=== PATIENT | female | born 1990 | race Caucasian/White ===

== ENCOUNTER → 2023-03-29 | Emergency (ER) | payer BC ==
[~2023-03-29] MED LIST: CYCLOBENZAPRINE 10 MG TAB ONE; KETOROLAC 30 MG/ML INJ ONE; dexAMETHasone 10 MG/ML VIAL ONE
[2023-03-29 09:06] LABS: Specific Gravity 1.005 (1.005-1.030)
--- NOTE | 2023-03-29 09:26 | RAD REPORT ---
EXAM DESCRIPTION: CT - Spine Lumbar Wo Con - 03/29/2023 9:14 am CLINICAL HISTORY: Radiculopathy. LOWER BACK PAIN COMPARISON: No comparisons TECHNIQUE: Axial noncontrast CT imaging of the lumbar spine was performed with coronal and sagittal re-formatted images. All CT scans are performed using dose optimization technique as appropriate and may include automated exposure control or mA/KV adjustment according to patient size. FINDINGS: No acute lumbar spine fracture seen. No aggressive marrow pattern or malalignment. Paraspinal tissues are normal in thickness. No paraspinal abscess or hematoma seen. Mild posterior disc bulges are present lower lumbar levels. No gross high-grade canal stenosis. IMPRESSION: No acute lumbar spine abnormality is discerned. Mild lower lumbar spondylosis.
[2023-03-29 09:30] LABS: Specific Gravity 1.005 (1.005-1.030); Urine Bacteria <20 /HPF (<20); Urine Bilirubin NEGATIVE (Negative); Urine Blood Negative (Negative); Urine Clarity Turbid (Clear); Urine Color Colorless (Yellow); Urine Glucose NEGATIVE (Negative); Urine Mucus Slight /HPF (None Seen); Urine Protein NEGATIVE (Negative); Urine RBC None Seen /HPF (None Seen); Urine Urobilinogen Normal (Normal)
--- NOTE | 2023-03-29 09:36 | EDPHYS ---
Physician Documentation [facility] Name: Nevaeh Hightower Age: 32 yrs Sex: Female : 1990 Arrival Date: 03/29/2023 Time: 08:03 Bed IW1 Private MD: ED Physician Mauricio Adame HPI: 03/29 08:19 This 32 yrs old Female presents to ER via Unassigned with complaints of Low Back Pain. sb4 08:19 The patient presents with pain that is acute, with no known mechanism of injury. The sb4 symptoms are located in the left low back. The pain radiates to the left leg. The problem was sustained without known cause. Onset: The symptoms/episode began/occurred 1 year(s) ago, and became worse 4 day(s) ago. Modifying factors: The patient symptoms are alleviated by rest, the patient symptoms are aggravated by any movement. Associated signs and symptoms: Pertinent negatives: dysuria, fever, hematuria, incontinence, nausea, tingling, weakness. The patient has not experienced similar symptoms in the past. Patient reports left-sided sciatica x 1 year however got worse a few days ago. She states that she has been taking Tylenol Motrin without relief. Denies any specific injury. Denies any urinary symptoms. Denies any bowel or bladder incontinence . ROS: 08:19 Constitutional: Negative for fever, chills, and weight loss, sb4 08:19 Back: Positive for pain at rest, radiated pain, 08:19 All other systems are negative, Exam: 08:19 Constitutional: This is a well developed, well nourished patient who is awake, alert, sb4 and in no acute distress. Head/Face: Normocephalic, atraumatic. Eyes: Extra-ocular motions intact. Periorbital areas with no swelling, redness, or edema. ENT: Mucous membranes moist. Skin: Warm, dry with normal turgor. Normal color with no rashes, no lesions, and no evidence of cellulitis. MS/ Extremity: Pulses equal, no cyanosis. Neurovascular intact. Full, normal range of motion. Neuro: Awake and alert, GCS 15, oriented to person, place, time, and situation. Motor strength 5/5 in all extremities. Sensory grossly intact. 08:19 Back: ROM is painful, normal spinal alignment noted, CVA tenderness, is absent, muscle spasm, is not present, Straight leg raises: of both lower extremities does not illicit pain, Vital Signs: 08:59 BP 150 / 101; Pulse 110; Resp 16; Temp 97.9; Pulse Ox 97% on R/A; Pain 7/10; iw 08:59 Pain Scale: Adult iw MDM: 08:06 Patient medically screened. sb4 08:19 Differential diagnosis: strain, fracture, sciatica, Herniated disc UTI. sb4 09:35 Data reviewed: vital signs, nurses notes, lab test result(s), radiologic studies, and sb4 as a result, I will discharge patient. Counseling: I had a detailed discussion with the patient and/or guardian regarding the historical points, exam findings, and any diagnostic results supporting the discharge/admit diagnosis, lab results, radiology results, to return to the emergency department if symptoms worsen or persist or if there are any questions or concerns that arise at home. 03/29 08:19 Order name: Test, Urine; Complete Time: 09:08 sb4 03/29 08:19 Order name: UAM; Complete Time: 09:35 sb4 03/29 08:19 Order name: CT Lumbar Spine Wo Con; Complete Time: 09:27 sb4 Administered Medications: 08:58 Drug: Ketorolac IM 30 mg IM once Route: IM; Site: left gluteus; iw 08:58 Drug: Dexamethasone IM 10 mg IM once Route: IM; Site: left gluteus; iw 08:58 Drug: Cyclobenzaprine PO 10 mg PO once Route: PO; iw Disposition: 18:39 I was immediately available on-site in the Emergency Department for consultation in the ms3 care of the patient. Disposition Summary: 03/29/23 09:36 Discharge Ordered Notes: Location: Home sb4 Problem: an ongoing problem sb4 Symptoms: have improved sb4 Condition: Stable sb4 Diagnosis - Lumbago with sciatica, left side sb4 Followup: sb4 - With: Private Physician - When: As needed - Reason: Further diagnostic work-up, Recheck today's complaints, Re-evaluation by your physician Discharge Instructions: - Discharge Summary Sheet sb4 - Sciatica sb4 - Low Back Sprain or Strain Rehab sb4 Forms: - Work release form sb4 - Medication Reconciliation Form sb4 - Thank You Letter sb4 - Antibiotic Education sb4 - Prescription Opioid Use sb4 - Patient Portal Instructions sb4 - Leadership Thank You Letter sb4 Prescriptions: - Cyclobenzaprine 10 mg Oral Tablet - take 1 tablet ORAL route every 8 hours As needed; 30 tablet; Refills: 0, sb4 Product Selection Permitted - Diclofenac Sodium 75 mg Oral Tablet Sustained Release - take 1 tablet ORAL route 2 times per day; 30 tablet; Refills: 0, Product sb4 Selection Permitted - Medrol (Oh) 4 mg Oral Tablets, Dose Pack - take 1 tablet ORAL route as directed - follow package instructions; 1 packet; sb4 Refills: 0, Product Selection Permitted Signatures: Dispatcher [employer] Dionna Cao RN RN iw Mauricio Adame DO DO ms3 Maggie Mccabe, STEWART WILLIAM sb4
--- NOTE | 2023-03-29 09:36 | ER ---
Nurse's Notes [facility] Name: Nevaeh Hightower Age: 32 yrs Sex: Female : 1990 Arrival Date: 03/29/2023 Time: 08:03 Bed IW1 Private MD: Diagnosis: Lumbago with sciatica, left side Presentation: 03/29 08:59 Chief complaint: Patient states: left lower back pain X 1 year, getting worse. iw Coronavirus screen: At this time, the client does not indicate any symptoms associated with coronavirus-19. Ebola Screen: Patient negative for fever greater than or equal to 101.5 degrees Fahrenheit, and additional compatible Ebola Virus Disease symptoms Patient denies exposure to infectious person. Patient denies travel to an Ebola-affected area in the 21 days before illness onset. No symptoms or risks identified at this time. Risk Assessment: Do you want to hurt yourself or someone else? Patient reports no desire to harm self or others. 08:59 Method Of Arrival: Ambulatory iw 08:59 Acuity: SARA 4 iw 08:59 Initial Sepsis Screen: Does the patient meet any 2 criteria? No. Patient's initial iw sepsis screen is negative. Does the patient have a suspected source of infection? No. Patient's initial sepsis screen is negative. Screenin:03 [facility] ED Fall Risk Assessment (Adult) Score/Fall Risk Level 0 - 2 = Low Risk. Abuse iw screen: Denies threats or abuse. Denies injuries from another. Nutritional screening: No deficits noted. Tuberculosis screening: No symptoms or risk factors identified. Assessment: 10:03 General: Appears in no apparent distress. Behavior is calm, cooperative. Pain: iw Complains of pain in left leg and left low back. Neuro: Level of Consciousness is awake, alert, obeys commands, Moves all extremities. Full function. Vital Signs: 08:59 BP 150 / 101; Pulse 110; Resp 16; Temp 97.9; Pulse Ox 97% on R/A; Pain 7/10; iw 08:59 Pain Scale: Adult iw ED Course: 08:06 Patient arrived in ED. rg4 08:06 [facility]ccabe [facility] sb4 08:06 Mauricio Adame DO is Attending Physician. sb4 08:48 Dionna Ambrose, CLAUDETTE is Primary Nurse. iw 08:59 Triage completed. iw 09:13 CT Lumbar Spine Wo Con In Process Unspecified. EDMS 10:03 No provider procedures requiring assistance completed. Patient did not have IV access iw during this emergency room visit. 10:05 Patient has correct armband on for positive identification. Provided Education on: . iw Administered Medications: 08:58 Drug: Ketorolac IM 30 mg IM once Route: IM; Site: left gluteus; iw 08:58 Drug: Dexamethasone IM 10 mg IM once Route: IM; Site: left gluteus; iw 08:58 Drug: Cyclobenzaprine PO 10 mg PO once Route: PO; iw Medication: 10:05 VIS not applicable for this client. iw Outcome: 09:36 Discharge ordered by . sb4 10:05 Discharged to home ambulatory, iw 10:05 Condition: good 10:05 Discharge instructions given to patient, Instructed on discharge instructions, follow up and referral plans. Demonstrated understanding of instructions, follow-up care, medications, Prescriptions given X 3, 10:06 Patient left the ED. iw Signatures: Dispatcher [employer] Dionna Cao, RN RN Mora Mejía rg4 Maggie Mccabe PA-C PA-C sb4
[2023-03-29 10:18] VITALS: BP 150/101; TEMP 97.9; O2SAT 97
== END ==
LOC: ER 08:03
DX: M54.42 Lumbago with sciatica, left side (principal)
CPT/HCPCS: 81001; 81025; 72131; 96372; 99284; J1100